=== PATIENT | male | born 1985 | race Caucasian/White ===

== ENCOUNTER 2017-10-07 12:24 | Emergency (ER) | payer OTHER ==
[2017-10-07 12:45] LABS: ABSOLUTE BASOPHILS # (AUTO) 0.1 10^3/uL (0.0-0.2); ABSOLUTE EOSINOPHILS # (AUTO) 0.8 10^3/uL (0.0-0.6); ABSOLUTE MONOCYTES (AUTO) 0.7 10^3/uL (0.1-1.4); ABSOLUTE NEUT (AUTO) 4.5 10^3/uL (1.7-8.2); EOSINOPHILS % (AUTO) 7.8 % (0-6); HEMATOCRIT 43.1 % (37.9-51.0); HEMOGLOBIN 14.8 g/dL (13.5-17.0); LYMPHOCYTES % (AUTO) 39.7 % (13-45); MEAN CORPUSCULAR HEMOGLOBIN 31.9 pg (27.0-33.4); MEAN CORPUSCULAR HGB CONC 34.5 g/dL (32.0-36.0); MEAN CORPUSCULAR VOLUME 93 fl (80-97); MONOCYTES % (AUTO) 6.7 % (3-13); PLATELET COUNT 332 10^3/uL (150-450); RED BLOOD COUNT 4.65 10^6/uL (4.35-5.55); RED CELL DISTRIBUTION WIDTH 12.7 % (11.5-14.0); SEGMENTED NEUTROPHILS % (AUTO) 44.8 % (42-78); TOTAL CELLS COUNTED % (AUTO) 100 %
[2017-10-07 13:06] VITALS: BP 160/117
[2017-10-07 13:06] LABS: ALANINE AMINOTRANSFERASE 28 U/L (21-72); ALBUMIN 4.6 g/dL (3.5-5.0); ALKALINE PHOSPHATASE 71 U/L (38-126); ANION GAP 11 (5-19); ASPARTATE AMINO TRANSFERASE 27 U/L (17-59); BILIRUBIN,DIRECT 0.1 mg/dL (0.0-0.4); BILIRUBIN,TOTAL 0.6 mg/dL (0.2-1.3); BLOOD UREA NITROGEN 8 mg/dL (7-20); CALCIUM 9.9 mg/dL (8.4-10.2); CARBON DIOXIDE 27 mmol/L (22-30); CHLORIDE 103 mmol/L (98-107); GLUCOSE 157 mg/dL (75-110); LIPASE 112.6 U/L (23-300); POTASSIUM 3.8 mmol/L (3.6-5.0); SODIUM 140.8 mmol/L (137-145); TOTAL PROTEIN 6.9 g/dL (6.3-8.2)
[2017-10-07] MEDS ORDERED: ONDANSETRON HCL INJ/PF 4 MG/2 ML SDV IV ONE (13:22)
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
[2017-10-07] MEDS: NORMAL SALINE 1000 ML 1,000 ML IV PRN ×2 (13:42→13:46)
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
--- NOTE | 2017-10-07 18:45 | EKG REPORT ---
SEVERITY:- ABNORMAL ECG - SINUS TACHYCARDIA VINH, CONSIDER BIATRIAL ABNORMALITIES INCOMPLETE RIGHT BUNDLE BRANCH BLOCK INFERIOR Q WAVES, PROBABLY NORMAL VARIATION : Confirmed by: Manuel Valentin MD 07-Oct-2017 18:44:07
== END 2017-10-07 14:45 | disposition left against medical advice (07) ==
LOC: ER 12:24
DX: R00.0 Tachycardia, unspecified (principal); R09.02 Hypoxemia; M79.1 Myalgia; F14.90 Cocaine use, unspecified, uncomplicated; F12.90 Cannabis use, unspecified, uncomplicated; F17.200 Nicotine dependence, unspecified, uncomplicated; V89.2XXA Person injured in unspecified motor-vehicle accident, traffic, initial encounter; Z79.899 Other long term (current) drug therapy
CPT/HCPCS: 93005; 99285; 96361; 96374; 36415; 83690; 85025; 80053; 70450; 71260; 72125; 74177; 93010; L0172; J2405; J7030

== ENCOUNTER 2017-12-17 13:08 | Inpatient (IN) | payer SELFPAY ==
[2017-12-17] MEDS ORDERED: DIPH/PERTUSS(ACELL)/TETANUS VAC/PF 0.5 ML SYR (>=10YO) IM ONE (13:21)
--- NOTE | 2017-12-17 13:23 | ER Document Report ---
ED Medical Screen (RME) - General Chief Complaint: Skin Problem Stated Complaint: ARM PAIN Time Seen by Provider: 12/17/17 13:18 Mode of Arrival: Ambulatory Information source: Patient Notes: This is a 32-year-old man who presents to the emergency room with left upper extremity pain, swelling and redness for 3 days after injecting cocaine. Patient denies any fever, chills, nausea vomiting. He states that the area of swelling is getting larger. On physical exam, patient does have an indurated area on the medial and of the left arm just above the elbow with tenderness. There is no obvious fluctuance, there is overlying warmth and erythema. Distal pulses is 2+ radially. Cap refill is good. I have greeted and performed a rapid initial assessment of this patient. A comprehensive ED assessment and evaluation of the patient, analysis of test results and completion of medical decision making process we will be contacted by additional ED providers. TRAVEL OUTSIDE OF THE [place] IN LAST 30 DAYS: No - Related Data Allergies/Adverse Reactions: No Known Drug Allergies Allergy (Verified 12/17/17 13:09) bees Allergy (Uncoded 12/17/17 13:09) Past Medical History - Social History Chew tobacco use (# tins/day): No Frequency of alcohol use: Occasional Drug Abuse: Cocaine, Prescription drugs Renal/ Medical History: Denies: Hx Peritoneal Dialysis Musculoskeltal Medical History: Reports Hx Musculoskeletal Deformity, Reports Hx Musculoskeletal Trauma Skin Medical History: Reports Hx Cellulitis Psychiatric Medical History: Reports: Hx Anxiety, Hx Attention Deficit Hyperactivity Disorder, Hx Bipolar Disorder Traumatic Medical History: Reports: Hx Fractures Past Surgical History: Reports: Hx Orthopedic Surgery - Achilles tendon repair - Immunizations Immunizations up to date: Yes Hx Diphtheria, Pertussis, Tetanus Vaccination: Yes
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
[2017-12-17 14:08] LABS: ABSOLUTE BASOPHILS # (AUTO) 0.1 10^3/uL (0.0-0.2); ABSOLUTE EOSINOPHILS # (AUTO) 0.4 10^3/uL (0.0-0.6); ABSOLUTE LYMPHOCYTES (AUTO) 1.6 10^3/uL (0.5-4.7); ABSOLUTE MONOCYTES (AUTO) 0.5 10^3/uL (0.1-1.4); BASOPHILS % (AUTO) 0.9 % (0-2); EOSINOPHILS % (AUTO) 3.7 % (0-6); HEMATOCRIT 42.9 % (37.9-51.0); HEMOGLOBIN 14.7 g/dL (13.5-17.0); LYMPHOCYTES % (AUTO) 14.8 % (13-45); MEAN CORPUSCULAR HEMOGLOBIN 31.2 pg (27.0-33.4); MEAN CORPUSCULAR HGB CONC 34.3 g/dL (32.0-36.0); MEAN CORPUSCULAR VOLUME 91 fl (80-97); PLATELET COUNT 232 10^3/uL (150-450); SEGMENTED NEUTROPHILS % (AUTO) 75.6 % (42-78); TOTAL CELLS COUNTED % (AUTO) 100 %; WHITE BLOOD COUNT 10.6 10^3/uL (4.0-10.5)
--- NOTE | 2017-12-17 14:35 | RADIOLOGY REPORT (SQ) ---
EXAM DESCRIPTION: CT LT UPPER EXTREMITY WITH COMPLETED DATE/TIME: 12/17/2017 2:15 pm REASON FOR STUDY: r/o abscess just above elbow medially COMPARISON: None. TECHNIQUE: Postcontrast axial imaging performed through the left elbow in adjacent tissues with refo rmatted coronal and sagittal imaging windowed for bone and soft tissues. Images saved to PACS. 3D IMAGING: Were 3D images as MIP, SSD, or volume rendering performed at the work station? No All CT scanners at this facility use dose modulation, iterative reconstruction, and/or weight based d osing when appropriate to reduce radiation dose to as low as reasonably achievable (ALARA). [facility]: Dose Right [facility]: CareDose [facility]: Dose Right [facility]: Teradose 4D [facility]: [email or web address] CONTRAST TYPE AND DOSE: contrast/concentration: Isovue 370.00 mg/ml; Total Contrast Delivered: 80.0 ml; Total Saline Delivered: 55.0 ml RENAL FUNCTION: None required. The patient is less than 50 years old. LIMITATIONS: None. RADIATION DOSE: CT Rad equipment meets quality standard of care and radiation dose reduction techniq ues were employed. CTDIvol: 2.6 mGy. DLP: 81 mGy-cm.mGy. FINDINGS: SOFT TISSUES: Diffuse subcutaneous edema along the distal arm and throughout the proximal forearm. There is a roughly rounded peripherally enhancing area just above the elbow medially which measures close to 1.6 cm transverse dimension, 2 cm craniocaudal. Central low density but not clearl y drainable fluid. This potential additional clot in some of the regional veins. Regionally attenua adele the vessels, focally occluding the veins at this level. BONES: No acute fracture. No dislocation. MINERALIZATION: Normal. ENHANCEMENT: See above. OTHER: No other significant finding. IMPRESSION: Potential phlegmon in the region of interest. There is mass effect on the adjacent vess els, which look focally significantly compressed with possible areas of regional thrombus. Recommend venous Doppler study to evaluate further. The lesion of interest does not clearly represent drainab le fluid at this time. TECHNICAL DOCUMENTATION: JOB ID: [id number] Quality ID # [id number]: Final reports with documentation of one or more dose reduction techniques (e.g., Au tomated exposure control, adjustment of the mA and/or kV according to patient size, use of iterative reconstruction technique) 2010 [employer]- All Rights Reserved Reading location - IP/workstation name: [email or web address]
[2017-12-17] MEDS ORDERED: VANCOMYCIN HCL INJ 1000 MG VIAL IV ONE (14:59)
[2017-12-17] MEDS ORDERED: PIPERACILLIN/TAZOBACTAM 3.375 GM VIAL IV ONE (14:59)
[2017-12-17] MEDS ORDERED: ONDANSETRON HCL INJ/PF 4 MG/2 ML SDV IV PRN (15:12)
[2017-12-17] MEDS ORDERED: ACETAMINOPHEN 325 MG TABLET PO PRN (15:12)
[2017-12-17 15:56] LABS: ALANINE AMINOTRANSFERASE 25 U/L (21-72); ALBUMIN 4.1 g/dL (3.5-5.0); ALKALINE PHOSPHATASE 77 U/L (38-126); ANION GAP 11 (5-19); ASPARTATE AMINO TRANSFERASE 21 U/L (17-59); BILIRUBIN,DIRECT 0.2 mg/dL (0.0-0.4); BILIRUBIN,TOTAL 0.4 mg/dL (0.2-1.3); BLOOD UREA NITROGEN 5 mg/dL (7-20); CALCIUM 9.9 mg/dL (8.4-10.2); CARBON DIOXIDE 30 mmol/L (22-30); CHLORIDE 101 mmol/L (98-107); GLUCOSE 84 mg/dL (75-110); POTASSIUM 4.1 mmol/L (3.6-5.0); SODIUM 141.6 mmol/L (137-145); TOTAL PROTEIN 6.8 g/dL (6.3-8.2)
[2017-12-17] MEDS ORDERED: VANCOMYCIN HCL 0 MG in DEXTROSE 5%-WATER 250 ML IV NR (16:00)
[2017-12-17] MEDS ORDERED: NICOTINE 14 MG/24 HR PATCH.TD24 TD PRN (16:27)
--- NOTE | 2017-12-17 16:44 | PDOC H&P ---
History of Present Illness Admission Date/PCP: 12/17/17 15:19 Patient complains of: Left arm redness and swelling History of Present Illness: ALBER ENRIQUE is a 32 year old male with history of IV drug abuse in the form of cocaine, who presents to [facility]'s emergency room this afternoon complaining of left antecubital fossa redness and swelling. Patient states he injected cocaine into that area approximately 1 week ago. Yesterday, the area became red, warm and tender. Swelling of the area considerably increased overnight. He therefore reported to the ER for treatment. He states he has been using cocaine since 2012. He has been careful to use new needles. He has had no prior history of cellulitis. He denies any fever chills or rigors. There is considerable pain in the area. Past Medical History Cardiac Medical History: Reports: None Pulmonary Medical History: Reports: None EENT Medical History: Reports: None Neurological Medical History: Reports: None Endocrine Medical History: Reports: None Renal/ Medical History: Reports: None Malignancy Medical History: Reports: None GI Medical History: Reports: None Musculoskeltal Medical History: Reports: None Psychiatric Medical History: Reports: Attention Deficit Hyperactivity Disorder, Bipolar Disorder, Substance Abuse, Tobacco Dependency Traumatic Medical History: Reports: None Hematology: Reports: None Infectious Medical History: Reports: None Past Surgical History Past Surgical History: Reports: Orthopedic Surgery - Achilles tendon repair Social History Information Source: Patient Lives with: Spouse/Significant other Smoking Status: Current Every Day Smoker Cigarettes Packs Per Day: 1 Number of Years Smokin Frequency of Alcohol Use: Occasional Hx Recreational Drug Use: Yes Drugs: Cocaine Hx Prescription Drug Abuse: No - Advance Directive Resuscitation Status: Full Code Surrogate healthcare decision maker:: Cee Family History Family History: CAD, CVA, DM, Hyperlipidemia, Hypertension, Other - chf, renal failure Parental Family History Reviewed: Yes Children Family History Reviewed: Yes Sibling(s) Family History Reviewed.: Yes Medication/Allergy Home Medications: No Home Medications 12/17/17 Allergies/Adverse Reactions: No Known Drug Allergies Allergy (Verified 12/17/17 16:30) bees Allergy (Severe, Uncoded 12/17/17 16:32) Anaphylaxis Review of Systems Constitutional: PRESENT: chills Eyes: ABSENT: visual disturbances Ears: ABSENT: hearing changes Respiratory: ABSENT: cough, hemoptysis Gastrointestinal: ABSENT: abdominal pain, constipation, diarrhea, hematemesis, hematochezia, nausea, vomiting Genitourinary: ABSENT: dysuria, hematuria Musculoskeletal: PRESENT: joint swelling - left antecubital fossa Integumentary: ABSENT: rash, wounds Neurological: ABSENT: abnormal gait, abnormal speech, confusion, dizziness, focal weakness, syncope Psychiatric: PRESENT: anxiety, depression Endocrine: ABSENT: cold intolerance, heat intolerance, polydipsia, polyuria Hematologic/Lymphatic: ABSENT: easy bleeding, easy bruising Physical Exam Vital Signs: Temp Pulse Resp BP Pulse Ox 98.1 F 101 H 18 141/87 H 100 12/17/17 13:14 12/17/17 13:14 12/17/17 13:14 12/17/17 13:14 12/17/17 13:14 General appearance: PRESENT: no acute distress, thin, well-developed Head exam: PRESENT: atraumatic, normocephalic Eye exam: PRESENT: conjunctiva pink, EOMI, PERRLA. ABSENT: scleral icterus Ear exam: PRESENT: normal external ear exam Mouth exam: PRESENT: moist, tongue midline Neck exam: ABSENT: carotid bruit, JVD, lymphadenopathy, thyromegaly Respiratory exam: PRESENT: clear to auscultation telma. ABSENT: rales, rhonchi, wheezes Cardiovascular exam: PRESENT: RRR. ABSENT: diastolic murmur, rubs, systolic murmur Pulses: PRESENT: normal dorsalis pedis pul Vascular exam: PRESENT: normal capillary refill GI/Abdominal exam: PRESENT: normal bowel sounds, soft. ABSENT: distended, guarding, mass, organolmegaly, rebound, tenderness Rectal exam: PRESENT: deferred Extremities exam: PRESENT: joint swelling, tenderness, +1 edema - left antecubital fossa Musculoskeletal exam: PRESENT: ambulatory, full ROM, tenderness - left forearm Neurological exam: PRESENT: alert, awake, oriented to person, oriented to place , oriented to time, oriented to situation, CN II-XII grossly intact. ABSENT: motor sensory deficit Psychiatric exam: PRESENT: appropriate affect, normal mood. ABSENT: homicidal ideation, suicidal ideation Skin exam: PRESENT: erythema, warm, other Results Impressions: Upper Extremity CT 12/17/17 13:20 IMPRESSION: Potential phlegmon in the region of interest. There is mass effect on the adjacent vessels, which look focally significantly compressed with possible areas of regional thrombus. Recommend venous Doppler study to evaluate further. The lesion of interest does not clearly represent drainable fluid at this time. Assessment & Plan - Diagnosis (1) Cellulitis of left upper extremity Is this a current diagnosis for this admission?: Yes Plan: Patient was placed on IV Zosyn and Vancomycin. As needed oral analgesics. (2) IV drug user Is this a current diagnosis for this admission?: Yes Plan: Patient states he has been injecting cocaine for the last 5 years. He is adamant he is going to quit now after this. (3) Superficial venous thrombosis of arm Qualifiers: Laterality: left Qualified Code(s): I82.612 - Acute embolism and thrombosis of superficial veins of left upper extremity Is this a current diagnosis for this admission?: Yes Plan: We will place K pad to the area. (4) Tobacco abuse Is this a current diagnosis for this admission?: Yes Plan: Continue patch and counseled. (5) Protein calorie malnutrition Qualifiers: Protein-calorie malnutrition severity: moderate Qualified Code(s): E44.0 - Moderate protein-calorie malnutrition Is this a current diagnosis for this admission?: Yes Plan: Regular diet with nutritional supplements as needed (6) Anxiety Is this a current diagnosis for this admission?: Yes Plan: Placed on BuSpar he used to take this had worked well. - Time Time Spent: 50 to 70 Minutes Critical Time spent with patient: 35 or more minutes Smoking Cessation Education: 3 to 10 minutes Medications reviewed and adjusted accordingly: Yes Anticipated discharge: Home - Inpatient Certification Based on my medical assessment, after consideration of the patient's comorbidities, presenting symptoms, or acuity I expect that the services needed warrant INPATIENT care.: Yes Medical Necessity: Need for IV Antibiotics, Risk of Complication if Not Cared For in Hospital - Plan Summary Plan Summary: Admit to medical floor with IV antibiotics. Blood cultures are pending
[2017-12-17] MEDS ORDERED: BUSPIRONE HCL 10 MG TABLET PO ONE (17:00)
[2017-12-17] MEDS: OXYCODONE-ACETAMINOPHEN 5-325 MG TABLET PO PRN ×2 (17:11→21:19)
[2017-12-17] MEDS: VANCOMYCIN HCL 750 MG in DEXTROSE 5%-WATER 250 ML IV SCH (17:12)
--- NOTE | 2017-12-17 17:25 | XCELERA REPORT ---
[address] [address] Upper Extremity Venous Evaluation Name: ALBER ENRIQUE Age: 32 yrs Gender: Male : 1985 Patient Status: Inpatient Patient Location: [place] [address]^A Study Date: 12/17/2017 03:30 PM Procedure: Unilateral duplex scan of the right upper extremity veins was performed, including responses to compression and other maneuvers. Reason For Study: left upper extremity edema Ordering Physician: INDRA HARRINGTON Performed By: Sirisha Vergara Left Sided Venous Evaluation Thickened wall, no flow in a short segment of the Basilic vein, close to a non vascular, edematous mass in the arm. P\Otherwise normal vessel filling wall to wall, compression and augmentation as well as Colour flow down to the infrageniculate veins. Interpretation Summary No duplex evidence of DVT or obstruction in the left upper extremity. Short segment of Basilic with superficial phlebitis. With possible inflammatory mass adjacent. : INDRA HARRINGTON > Kirk Looney
[2017-12-17] MEDS ORDERED: PIPERACILLIN SODIUM/TAZOBACTAM 4.5 GM in NORMAL SALINE 100 ML IV SCH (18:00)
[2017-12-17] MEDS: BUSPIRONE HCL 10 MG TABLET PO SCH (20:39)
[2017-12-17] MEDS: PIPERACILLIN SODIUM/TAZOBACTAM 4.5 GM in NORMAL SALINE 100 ML IV SCH (20:39)
[2017-12-18] MEDS: OXYCODONE-ACETAMINOPHEN 5-325 MG TABLET PO PRN ×6 (01:38→23:26)
[2017-12-18] MEDS: VANCOMYCIN HCL 750 MG in DEXTROSE 5%-WATER 250 ML IV SCH ×3 (01:39→17:27)
[2017-12-18] MEDS: PIPERACILLIN SODIUM/TAZOBACTAM 4.5 GM in NORMAL SALINE 100 ML IV SCH ×4 (05:51→20:25)
[2017-12-18] MEDS: BUSPIRONE HCL 10 MG TABLET PO SCH ×3 (05:53→21:56)
[2017-12-18 06:25] LABS: ABSOLUTE EOSINOPHILS # (AUTO) 0.4 10^3/uL (0.0-0.6); ABSOLUTE LYMPHOCYTES (AUTO) 1.7 10^3/uL (0.5-4.7); ABSOLUTE MONOCYTES (AUTO) 0.7 10^3/uL (0.1-1.4); ABSOLUTE NEUT (AUTO) 8.6 10^3/uL (1.7-8.2); BASOPHILS % (AUTO) 0.3 % (0-2); EOSINOPHILS % (AUTO) 3.7 % (0-6); HEMOGLOBIN 13.9 g/dL (13.5-17.0); MEAN CORPUSCULAR HEMOGLOBIN 30.8 pg (27.0-33.4); MEAN CORPUSCULAR HGB CONC 33.9 g/dL (32.0-36.0); MEAN CORPUSCULAR VOLUME 91 fl (80-97); MONOCYTES % (AUTO) 6.2 % (3-13); PLATELET COUNT 205 10^3/uL (150-450); RED BLOOD COUNT 4.51 10^6/uL (4.35-5.55); RED CELL DISTRIBUTION WIDTH 12.8 % (11.5-14.0); SEGMENTED NEUTROPHILS % (AUTO) 74.8 % (42-78); TOTAL CELLS COUNTED % (AUTO) 100 %; WHITE BLOOD COUNT 11.4 10^3/uL (4.0-10.5)
[2017-12-18 07:15] LABS: ANION GAP 11 (5-19); BLOOD UREA NITROGEN 7 mg/dL (7-20); CALCIUM 9.4 mg/dL (8.4-10.2); CARBON DIOXIDE 27 mmol/L (22-30); CHLORIDE 104 mmol/L (98-107); GLUCOSE 105 mg/dL (75-110); POTASSIUM 4.1 mmol/L (3.6-5.0); SODIUM 142.1 mmol/L (137-145)
--- NOTE | 2017-12-18 14:47 | PDOC PROGRESS REPORT ---
Subjective Progress Note for:: 12/18/17 Subjective:: Patient seen resting in bed. He is awake, alert and oriented 3. He is complaining of pain in the left antecubital area. Slightly improved from yesterday. The redness is definitely improved. He denies any chest pain, shortness of breath or dyspnea. He denies any nausea, or abdominal pain. He denies any fevers or chills overnight. He denies any significant other arthralgias or myalgias. Remaining review of systems are negative. Reason For Visit: CELLULITIS OF LEFT FOREARM Physical Exam Vital Signs: Temp Pulse Resp BP Pulse Ox 98.7 F 92 14 131/83 H 98 12/18/17 11:21 12/18/17 11:21 12/18/17 11:21 12/18/17 11:21 12/18/17 11:21 Intake & Output 12/17/17 12/18/17 12/19/17 06:59 06:59 06:59 Intake Total 2100 350 Balance 2100 350 Weight 60.6 kg General appearance: PRESENT: no acute distress, thin, well-developed Head exam: PRESENT: atraumatic, normocephalic Eye exam: PRESENT: conjunctiva pink, EOMI, PERRLA. ABSENT: scleral icterus Ear exam: PRESENT: normal external ear exam Mouth exam: PRESENT: moist, tongue midline Neck exam: ABSENT: carotid bruit, JVD, lymphadenopathy, thyromegaly Respiratory exam: PRESENT: clear to auscultation telma. ABSENT: rales, rhonchi, wheezes Cardiovascular exam: PRESENT: RRR. ABSENT: diastolic murmur, rubs, systolic murmur Pulses: PRESENT: normal dorsalis pedis pul Vascular exam: PRESENT: normal capillary refill GI/Abdominal exam: PRESENT: normal bowel sounds, soft. ABSENT: distended, guarding, mass, organolmegaly, rebound, tenderness Extremities exam: PRESENT: full ROM, tenderness, other - 3 cm raised area in left antecubital fossa with resolving surrounding erythema. ABSENT: calf tenderness, clubbing, pedal edema Musculoskeletal exam: PRESENT: ambulatory, full ROM, tenderness - left antecubital fossa Neurological exam: PRESENT: alert, awake, oriented to person, oriented to place , oriented to time, oriented to situation, CN II-XII grossly intact. ABSENT: motor sensory deficit Psychiatric exam: PRESENT: appropriate affect, normal mood. ABSENT: homicidal ideation, suicidal ideation Skin exam: PRESENT: dry, erythema, intact, warm, other - 3 cm area of swelling left antecubital fossa. ABSENT: cyanosis, rash Results Laboratory Results: 12/18/17 05:40 12/18/17 05:40 12/18/17 12/18/17 05:40 05:40 WBC 11.4 H RBC 4.51 Hgb 13.9 Hct 41.0 MCV 91 MCH 30.8 MCHC 33.9 RDW 12.8 Plt Count 205 Seg Neutrophils % 74.8 Lymphocytes % 15.0 Monocytes % 6.2 Eosinophils % 3.7 Basophils % 0.3 Absolute Neutrophils 8.6 H Absolute Lymphocytes 1.7 Absolute Monocytes 0.7 Absolute Eosinophils 0.4 Absolute Basophils 0.0 Sodium 142.1 Potassium 4.1 Chloride 104 Carbon Dioxide 27 Anion Gap 11 BUN 7 Creatinine 0.70 Est GFR ( Amer) > 60 Est GFR (Non-Af Amer) > 60 Glucose 105 Calcium 9.4 Impressions: Upper Extremity CT 12/17/17 13:20 IMPRESSION: Potential phlegmon in the region of interest. There is mass effect on the adjacent vessels, which look focally significantly compressed with possible areas of regional thrombus. Recommend venous Doppler study to evaluate further. The lesion of interest does not clearly represent drainable fluid at this time. Assessment & Plan - Diagnosis (1) Cellulitis of left upper extremity Is this a current diagnosis for this admission?: Yes Plan: Continue on IV Zosyn and Vancomycin. As needed oral analgesics.Blood cultures are pending (2) IV drug user Is this a current diagnosis for this admission?: Yes Plan: Patient states he has been injecting cocaine for the last 5 years. He is adamant he is going to quit now after this. (3) Superficial venous thrombosis of arm Qualifiers: Laterality: left Qualified Code(s): I82.612 - Acute embolism and thrombosis of superficial veins of left upper extremity Is this a current diagnosis for this admission?: Yes Plan: We will place K pad to the area. (4) Tobacco abuse Is this a current diagnosis for this admission?: Yes Plan: Continue patch and counseled. (5) Protein calorie malnutrition Qualifiers: Protein-calorie malnutrition severity: moderate Qualified Code(s): E44.0 - Moderate protein-calorie malnutrition Is this a current diagnosis for this admission?: Yes Plan: Regular diet with nutritional supplements as needed (6) Anxiety Is this a current diagnosis for this admission?: Yes Plan: Placed on BuSpar he used to take this had worked well. - Time Time Spent with patient: 25-34 minutes Total Critical Time (Minutes): 20 Smoking Cessation Education: 3 to 10 minutes Medications reviewed and adjusted accordingly: Yes Anticipated discharge: Home - Inpatient Certification Based on my medical assessment, after consideration of the patient's comorbidities, presenting symptoms, or acuity I expect that the services needed warrant INPATIENT care.: Yes I certify that my determination is in accordance with my understanding of Medicare's requirements for reasonable and necessary INPATIENT services [42 CFR 412.3e].: Yes Medical Necessity: Need for IV Antibiotics
[2017-12-18] MEDS: KETOROLAC TROMETHAMINE INJ/PF 30 MG/1 ML SDV IV PRN ×2 (17:26→23:26)
[2017-12-18 18:06] LABS: VANCOMYCIN,TROUGH 5.9 ug/mL (5.0-20.0)
[2017-12-19] MEDS: VANCOMYCIN HCL 750 MG in DEXTROSE 5%-WATER 250 ML IV SCH (01:19)
[2017-12-19] MEDS: PIPERACILLIN SODIUM/TAZOBACTAM 4.5 GM in NORMAL SALINE 100 ML IV SCH ×2 (02:53→08:28)
[2017-12-19] MEDS: OXYCODONE-ACETAMINOPHEN 5-325 MG TABLET PO PRN ×2 (03:32→08:29)
[2017-12-19] MEDS: BUSPIRONE HCL 10 MG TABLET PO SCH (06:35)
[2017-12-19 07:31] LABS: ABSOLUTE EOSINOPHILS # (AUTO) 0.4 10^3/uL (0.0-0.6); ABSOLUTE LYMPHOCYTES (AUTO) 1.5 10^3/uL (0.5-4.7); ABSOLUTE MONOCYTES (AUTO) 0.9 10^3/uL (0.1-1.4); ABSOLUTE NEUT (AUTO) 8.7 10^3/uL (1.7-8.2); BASOPHILS % (AUTO) 0.3 % (0-2); EOSINOPHILS % (AUTO) 3.8 % (0-6); HEMATOCRIT 39.5 % (37.9-51.0); HEMOGLOBIN 13.3 g/dL (13.5-17.0); MEAN CORPUSCULAR HEMOGLOBIN 30.2 pg (27.0-33.4); MEAN CORPUSCULAR HGB CONC 33.6 g/dL (32.0-36.0); MEAN CORPUSCULAR VOLUME 90 fl (80-97); PLATELET COUNT 192 10^3/uL (150-450); RED CELL DISTRIBUTION WIDTH 13.1 % (11.5-14.0); SEGMENTED NEUTROPHILS % (AUTO) 74.9 % (42-78); TOTAL CELLS COUNTED % (AUTO) 100 %; WHITE BLOOD COUNT 11.6 10^3/uL (4.0-10.5)
[2017-12-19 07:56] LABS: BLOOD UREA NITROGEN 8 mg/dL (7-20); CALCIUM 9.6 mg/dL (8.4-10.2); CARBON DIOXIDE 26 mmol/L (22-30); CHLORIDE 107 mmol/L (98-107); GLUCOSE 100 mg/dL (75-110); POTASSIUM 4.2 mmol/L (3.6-5.0); SODIUM 143.1 mmol/L (137-145)
[2017-12-19 07:57] LABS: ANION GAP 10 (5-19)
[2017-12-19] MEDS ORDERED: VANCOMYCIN HCL 1,500 MG in DEXTROSE 5%-WATER 250 ML IV SCH (10:00)
[2017-12-19 12:22] VITALS: BP 133/80
[2017-12-19] MEDS ORDERED: ONDANSETRON HCL INJ/PF 4 MG/2 ML SDV IV PRN (13:30)
--- NOTE | 2017-12-19 15:45 | PDOC DISCHARGE SUMMARY ---
General - Admit/Disc Date/PCP Admission Date/Primary Care Provider: 12/17/17 15:19 Discharge Date: 12/19/17 - Discharge Diagnosis (1) Cellulitis of left upper extremity Is this a current diagnosis for this admission?: Yes (2) IV drug user Is this a current diagnosis for this admission?: Yes (3) Superficial venous thrombosis of arm Is this a current diagnosis for this admission?: Yes (4) Tobacco abuse Is this a current diagnosis for this admission?: Yes (5) Protein calorie malnutrition Is this a current diagnosis for this admission?: Yes (6) Anxiety Is this a current diagnosis for this admission?: Yes - Additional Information Resuscitation Status: Full Code Discharge Diet: Regular Discharge Activity: Activity As Tolerated Prescriptions: Oxycodone HCl/Acetaminophen [Percocet 5-325 mg Tablet] 1 tab PO Q4HP PRN #30 tablet PRN Reason: Clindamycin HCl [Cleocin 300 mg Capsule] 300 mg PO QID #40 capsule Home Medications: Clindamycin HCl [Cleocin 300 mg Capsule] 300 mg PO QID #40 capsule 12/19/17 Oxycodone HCl/Acetaminophen [Percocet 5-325 mg Tablet] 1 tab PO Q4HP PRN #30 tablet 12/19/17 History of Present Illness Patient complains of: Left antecubital fossa redness and swelling History of Present Illness: ALBER ENRIQUE is a 32 year old male with history of IV drug abuse in the form of cocaine, who presents to [facility]'s emergency room this afternoon complaining of left antecubital fossa redness and swelling. Patient states he injected cocaine into that area approximately 1 week ago. Yesterday, the area became red, warm and tender. Swelling of the area considerably increased overnight. He therefore reported to the ER for treatment. He states he has been using cocaine since 2012. He has been careful to use new needles. He has had no prior history of cellulitis. He denies any fever chills or rigors. There is considerable pain in the area. Hospital Course Hospital Course: Patient was admitted to the hospitalist service to the medical floor. Upper extremity venous duplex showed superficial brachial vein divided service no deep thrombosis. Physical Exam Vital Signs: Temp Pulse Resp BP Pulse Ox 98.3 F 72 12 133/80 H 99 12/19/17 12:20 12/19/17 12:20 12/19/17 12:20 12/19/17 12:20 12/19/17 12:20 Intake & Output 12/18/17 12/19/17 12/20/17 06:59 06:59 06:59 Intake Total 2099 1240 300 Balance 2099 1240 300 Weight 60.6 kg 60.4 kg General appearance: PRESENT: no acute distress, well-developed, well-nourished Head exam: PRESENT: atraumatic, normocephalic Eye exam: PRESENT: conjunctiva pink, EOMI, PERRLA. ABSENT: scleral icterus Ear exam: PRESENT: normal external ear exam Mouth exam: PRESENT: moist, tongue midline Neck exam: ABSENT: carotid bruit, JVD, lymphadenopathy, thyromegaly Respiratory exam: PRESENT: clear to auscultation telma. ABSENT: rales, rhonchi, wheezes Cardiovascular exam: PRESENT: RRR. ABSENT: diastolic murmur, rubs, systolic murmur Pulses: PRESENT: normal dorsalis pedis pul Vascular exam: PRESENT: normal capillary refill GI/Abdominal exam: PRESENT: normal bowel sounds, soft. ABSENT: distended, guarding, mass, organolmegaly, rebound, tenderness Rectal exam: PRESENT: deferred Extremities exam: PRESENT: tenderness, other - Left antecubital fossa Musculoskeletal exam: PRESENT: ambulatory, full ROM, tenderness Neurological exam: PRESENT: alert, awake, oriented to person, oriented to place , oriented to time, oriented to situation, CN II-XII grossly intact. ABSENT: motor sensory deficit Psychiatric exam: PRESENT: anxious Skin exam: PRESENT: dry - 3 cm raised area left anterior antecubital fossa, erythema, warm Results Laboratory Results: 12/19/17 06:48 12/19/17 06:48 12/18/17 12/19/17 12/19/17 17:30 06:48 06:48 WBC 11.6 H RBC 4.40 Hgb 13.3 L Hct 39.5 MCV 90 MCH 30.2 MCHC 33.6 RDW 13.1 Plt Count 192 Seg Neutrophils % 74.9 Lymphocytes % 13.0 Monocytes % 8.0 Eosinophils % 3.8 Basophils % 0.3 Absolute Neutrophils 8.7 H Absolute Lymphocytes 1.5 Absolute Monocytes 0.9 Absolute Eosinophils 0.4 Absolute Basophils 0.0 Sodium 143.1 Potassium 4.2 Chloride 107 Carbon Dioxide 26 Anion Gap 10 BUN 8 Creatinine 0.73 0.66 Est GFR ( Amer) > 60 > 60 Est GFR (Non-Af Amer) > 60 > 60 Glucose 100 Calcium 9.6 Impressions: Upper Extremity CT 12/17/17 13:20 IMPRESSION: Potential phlegmon in the region of interest. There is mass effect on the adjacent vessels, which look focally significantly compressed with possible areas of regional thrombus. Recommend venous Doppler study to evaluate further. The lesion of interest does not clearly represent drainable fluid at this time. Qualifiers - * PATIENT BEING DISCHARGED WITH ANY OF THE FOLLOWING DIAGNOSIS: No Plan Discharge Plan: Home on oral antibiotics Time Spent: Less than 30 Minutes
[2017-12-20 05:40] LABS: HEPATITIS A AB IGM Negative (Negative); HEPATITIS B CORE AB IGM Negative (Negative); HEPATITS B SURFACE ANTIGEN Negative (Negative)
[2017-12-20 07:15] LABS: HEPATITIS C VIRUS ANTIBODY >11.0 s/co ratio (0.0-0.9)
== END 2017-12-19 13:16 | disposition home or self-care (01) | DRG 603 ==
LOC: ER 13:08 → EH 15:19 → 5 18:05
PROVIDERS: ADMIT Internal Medicine; ATTEND Internal Medicine
DX: L03.114 Cellulitis of left upper limb (principal); I82.612 Acute embolism and thrombosis of superficial veins of left upper extremity; E44.0 Moderate protein-calorie malnutrition; Z68.1 Body mass index [BMI] 19.9 or less, adult; F14.10 Cocaine abuse, uncomplicated; F17.210 Nicotine dependence, cigarettes, uncomplicated; F41.9 Anxiety disorder, unspecified; Z82.49 Family history of ischemic heart disease and other diseases of the circulatory system; Z82.3 Family history of stroke; Z91.030 Bee allergy status
CPT/HCPCS: 36415; 80048; 80053; 80074; 80202; 82565; 85025; 87040; 90471; 90715; 93971; 99285; J1885; J2543; J3370; J3490; J7060

== ENCOUNTER 2020-03-05 17:10 | Emergency (ER) | payer SELFPAY ==
[2020-03-05 17:30] VITALS: BP 140/72
[2020-03-05] MEDS ORDERED: ASPIRIN 81 MG TABLET, CHEWABLE PO ONE (17:44)
[2020-03-05] MEDS ORDERED: NORMAL SALINE 1000 ML 1,000 ML IV ONE (17:46)
--- NOTE | 2020-03-05 17:46 | ER Document Report ---
ED Medical Screen (RME) - General Chief Complaint: Chest Pain Stated Complaint: CHEST PAIN Time Seen by Provider: 03/05/20 17:40 Mode of Arrival: Ambulatory Information source: Patient Notes: Patient presents complaining of chest pain for the past 2-1/2 days. Patient denies any cough or cold symptoms. Patient denies any shortness of breath, nausea or vomiting. Patient denies any fever. Patient states pain is worse with deep inspiration. Patient denies any history of PE or DVT in the past. Patient does acknowledge a history of IV drug abuse and he last shot up heroin 3 days ago. I have greeted and performed a rapid initial assessment of this patient. A comprehensive ED assessment and evaluation of the patient, analysis of test results and completion of the medical decision making process will be conducted by additional ED providers. TRAVEL OUTSIDE OF THE [place] IN LAST 30 DAYS: No - Related Data Allergies/Adverse Reactions: No Known Drug Allergies Allergy (Verified 12/17/17 16:30) bees Allergy (Severe, Uncoded 12/17/17 16:32) Anaphylaxis Past Medical History Renal/ Medical History: Denies: Hx Peritoneal Dialysis Musculoskeltal Medical History: Reports Hx Musculoskeletal Deformity, Reports Hx Musculoskeletal Trauma Skin Medical History: Reports Hx Cellulitis Psychiatric Medical History: Reports: Hx Anxiety, Hx Attention Deficit Hyperactivity Disorder, Hx Bipolar Disorder Traumatic Medical History: Reports: Hx Fractures Past Surgical History: Reports: Hx Orthopedic Surgery - Achilles tendon repair - Immunizations Immunizations up to date: Yes Hx Diphtheria, Pertussis, Tetanus Vaccination: Yes Physical Exam - Vital signs Vitals: Temp Pulse Resp BP Pulse Ox 98.2 F 102 H 16 140/72 H 97 03/05/20 17:29 03/05/20 17:29 03/05/20 17:29 03/05/20 17:29 03/05/20 17:29 - Respiratory Respiratory status: No respiratory distress Chest status: Tender, Pain with deep breathing Chest palpation: Normal - Cardiovascular Rhythm: Tachycardia Heart sounds: S1 appreciated, S2 appreciated Course - Vital Signs Vital signs: Temp Pulse Resp BP Pulse Ox 98.2 F 102 H 16 140/72 H 97 03/05/20 17:29 03/05/20 17:29 03/05/20 17:29 03/05/20 17:29 03/05/20 17:29
--- NOTE | 2020-03-05 18:20 | RADIOLOGY REPORT (SQ) ---
EXAM DESCRIPTION: CHEST 2 VIEWS IMAGES COMPLETED DATE/TIME: 03/05/2020 6:12 pm REASON FOR STUDY: cp COMPARISON: None. TECHNIQUE: Frontal and lateral radiographic views of the chest acquired. NUMBER OF VIEWS: Two view. LIMITATIONS: None. FINDINGS: LUNGS AND PLEURA: No opacities, masses or pneumothorax. No pleural effusion. MEDIASTINUM AND HILAR STRUCTURES: No masses or contour abnormalities. HEART AND VASCULAR STRUCTURES: Heart normal size. No evidence for failure. BONES: No acute findings. HARDWARE: None in the chest. OTHER: No other significant finding. IMPRESSION: NO SIGNIFICANT RADIOGRAPHIC FINDING IN THE CHEST. TECHNICAL DOCUMENTATION: JOB ID: [id number] 2010 [employer]- All Rights Reserved Reading location - IP/workstation name: [email or web address]
[2020-03-05 18:43] LABS: ABSOLUTE BASOPHILS # (AUTO) 0.1 10^3/uL (0.0-0.2); ABSOLUTE EOSINOPHILS # (AUTO) 0.4 10^3/uL (0.0-0.6); ABSOLUTE LYMPHOCYTES (AUTO) 1.7 10^3/uL (0.5-4.7); ABSOLUTE MONOCYTES (AUTO) 0.8 10^3/uL (0.1-1.4); ABSOLUTE NEUT (AUTO) 5.2 10^3/uL (1.7-8.2); BASOPHILS % (AUTO) 0.9 % (0-2); EOSINOPHILS % (AUTO) 5.2 % (0-6); HEMATOCRIT 41.9 % (37.9-51.0); HEMOGLOBIN 14.5 g/dL (13.5-17.0); LYMPHOCYTES % (AUTO) 20.5 % (13-45); MEAN CORPUSCULAR HEMOGLOBIN 29.8 pg (27.0-33.4); MEAN CORPUSCULAR HGB CONC 34.6 g/dL (32.0-36.0); MEAN CORPUSCULAR VOLUME 86 fl (80-97); MONOCYTES % (AUTO) 9.6 % (3-13); PLATELET COUNT 234 10^3/uL (150-450); RED BLOOD COUNT 4.87 10^6/uL (4.35-5.55); RED CELL DISTRIBUTION WIDTH 13.8 % (11.5-14.0); SEGMENTED NEUTROPHILS % (AUTO) 63.8 % (42-78); TOTAL CELLS COUNTED % (AUTO) 100 %; WHITE BLOOD COUNT 8.2 10^3/uL (4.0-10.5)
[2020-03-05 18:53] LABS: APPEARANCE,URINE CLEAR; BILIRUBIN,URINE NEGATIVE (NEGATIVE); COLOR,URINE YELLOW; GLUCOSE, URINE NEGATIVE (NEGATIVE); KETONES,URINE NEGATIVE (NEGATIVE); LEUKOCYTE ESTERASE,URINE NEGATIVE (NEGATIVE); NITRITE,URINE NEGATIVE (NEGATIVE); PROTEIN,URINE NEGATIVE (NEGATIVE); URINE SPECIFIC GRAVITY 1.012; UROBILINOGEN,URINE NEGATIVE mg/dL (<2.0)
[2020-03-05 19:01] LABS: ALBUMIN 4.3 g/dL (3.5-5.0); ALKALINE PHOSPHATASE 116 U/L (38-126); ANION GAP 8 (5-19); ASPARTATE AMINO TRANSFERASE 55 U/L (17-59); BILIRUBIN,DIRECT 0.3 mg/dL (0.0-0.4); BILIRUBIN,TOTAL 0.7 mg/dL (0.2-1.3); BLOOD UREA NITROGEN 10 mg/dL (7-20); CALCIUM 9.9 mg/dL (8.4-10.2); CARBON DIOXIDE 30 mmol/L (22-30); CHLORIDE 97 mmol/L (98-107); CREATINE KINASE 49 U/L (55-170); POTASSIUM 3.9 mmol/L (3.6-5.0); TOTAL PROTEIN 7.5 g/dL (6.3-8.2)
[2020-03-05 19:10] LABS: URINE BARBITURATES SCREEN NEGATIVE; URINE BENZODIAZEPINES SCREEN NEGATIVE; URINE COCAINE SCREEN NEGATIVE; URINE MARIJUANA (THC) SCREEN NEGATIVE; URINE METHADONE SCREEN NEGATIVE; URINE PHENCYCLIDINE SCREEN NEGATIVE
[2020-03-05 19:12] LABS: GLUCOSE 48 mg/dL (75-110)
--- NOTE | 2020-03-05 21:58 | EKG REPORT ---
SEVERITY:- ABNORMAL ECG - SINUS TACHYCARDIA PROBABLE LEFT VENTRICULAR HYPERTROPHY : Confirmed by: Christen Thornton MD 05-Mar-2020 21:57:43
== END 2020-03-06 00:31 | disposition left against medical advice (07) ==
LOC: ER 17:10
DX: R07.9 Chest pain, unspecified (principal); R00.0 Tachycardia, unspecified; Z87.892 Personal history of anaphylaxis; Z91.030 Bee allergy status
CPT/HCPCS: 36415; 71046; 80053; 80307; 81001; 82550; 83690; 84484; 85025; 93005; 93010; 99281

== ENCOUNTER 2020-05-16 07:30 | Emergency (ER) | payer OTHER ==
[2020-05-16 09:39] VITALS: BP 134/77
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
[2020-05-16] MEDS ORDERED: HYDROCODONE/ACETAMINOPHEN 5-325 MG TABLET PO ONE (10:20)
[2020-05-16] MEDS ORDERED: KETOROLAC TROMETHAMINE 60 MG/2 ML SDV IM ONE (10:20)
== END 2020-05-16 10:44 | disposition home or self-care (01) ==
LOC: ER 07:30
DX: S22.42XA Multiple fractures of ribs, left side, initial encounter for closed fracture (principal); Y04.2XXA Assault by strike against or bumped into by another person, initial encounter; F11.10 Opioid abuse, uncomplicated; F17.200 Nicotine dependence, unspecified, uncomplicated; Z87.892 Personal history of anaphylaxis; Z91.030 Bee allergy status
CPT/HCPCS: 99284; 96372; 71101; J1885